=== PATIENT | female | born 1935 | race Caucasian/White ===

== ENCOUNTER 2018-01-11 09:09 | Inpatient (IN) | payer MEDICARE ==
[~2018-01-11] VITALS: Ht 152.4 cm; Wt 68.5 kg
[~2018-01-11 09:09] MED LIST: ATEN25TA PO; LEVO75TA5 PO; OMEP-110 PO
[2018-01-11] MEDS ORDERED: ALENDRONATE (09:24)
[2018-01-11] MEDS ORDERED: ASPIRIN 81 MG TABLET CHEW ONE (09:55)
[2018-01-11] MEDS ORDERED: ASPIRIN 81 MG TABLET CHEW PO ONE (10:00)
[2018-01-11 10:13] LABS: BASOPHILS # (AUTO) 0.02 x10^3/uL (0-0.1); BASOPHILS % (AUTO) 0 % (0-1); EOSINOPHILS # (AUTO) 0.11 x10^3/uL (0-0.4); EOSINOPHILS % (AUTO) 2 % (1-7); LYMPHOCYTES # (AUTO) 1.71 x10^3/uL (1-3.4); LYMPHOCYTES % (AUTO) 30 % (22-44); MD NO; MEAN CORPUSCULAR HEMOGLOBIN 28.5 pg (27.0-34.8); MEAN CORPUSCULAR VOLUME 86.4 fL (80-100); MEAN PLATELET VOLUME 9.4 fL (7.4-10.4); MONOCYTES # (AUTO) 0.49 x10^3/uL (0.2-0.8); MONOCYTES % (AUTO) 9 % (2-9); NEUTROPHILS # (AUTO) 3.44 x10^3/uL (1.8-6.8); NEUTROPHILS % (AUTO) 60 % (42-75); PLATELET COUNT 245 x10^3/uL (130-400); RED BLOOD COUNT 5.03 x10^6/uL (3.82-5.3); RED CELL DISTRIBUTION WIDTH 14.2 % (9.6-15.2)
[2018-01-11 10:24] LABS: ALANINE AMINOTRANSFERASE 21 U/L (12-78); ANION GAP 8 mmol/L (5-15); CALCIUM 8.5 mg/dL (8.5-10.1); CHLORIDE 111 mmol/L (98-107); CREATININE 0.75 mg/dL (0.55-1.02)
[2018-01-11 10:28] LABS: ALKALINE PHOSPHATASE 60 U/L (45-117); BILIRUBIN,TOTAL 0.4 mg/dL (0.2-1.0); TOTAL PROTEIN 7.5 g/dL (6.4-8.2); TROPONIN I < 0.015 ng/mL (0.000-0.045)
[2018-01-11] MEDS ORDERED: ONDANSETRON 2MG/ML, 2ML IVPush PRN (12:30)
[2018-01-11] MEDS ORDERED: ACETAMINOPHEN 325 MG TABLET PO PRN (12:30)
[2018-01-11] MEDS ORDERED: hydrALAzine 20 MG/ML, 1ML IVPush PRN (12:30)
[2018-01-11 12:55] VITALS: BP_SYST 144; BP_SYST 163; BP_SYST 168; BP_DIAS 71; BP_DIAS 79; BP_DIAS 84
[2018-01-11 13:01] LABS: FREE T4 (FREE THYROXINE) 1.41 ng/dL (0.76-1.46); TROPONIN I < 0.015 ng/mL (0.000-0.045)
[2018-01-11 13:06] LABS: THYROID STIMULATING HORMONE 0.196 mIU/L (0.358-3.740)
[2018-01-11] MEDS: HEPARIN 5,000 UNITS/ML, 1ML SQ SCH ×2 (14:01→20:43)
[2018-01-11] MEDS: SODIUM CHLORIDE 0.9% 1,000 ML IV SCH (16:39)
[2018-01-11 19:41] VITALS: BP 158/83
[2018-01-11 20:12] LABS: TROPONIN I < 0.015 ng/mL (0.000-0.045)
[2018-01-12 00:46] VITALS: BP 149/74
[2018-01-12 05:35] LABS: BASOPHILS # (AUTO) 0.02 x10^3/uL (0-0.1); BASOPHILS % (AUTO) 0 % (0-1); EOSINOPHILS # (AUTO) 0.13 x10^3/uL (0-0.4); EOSINOPHILS % (AUTO) 3 % (1-7); LYMPHOCYTES # (AUTO) 1.72 x10^3/uL (1-3.4); LYMPHOCYTES % (AUTO) 37 % (22-44); MD NO; MEAN CORPUSCULAR HEMOGLOBIN 28.4 pg (27.0-34.8); MEAN CORPUSCULAR HGB CONC 32.9 g/dL (32.4-35.8); MEAN CORPUSCULAR VOLUME 86.3 fL (80-100); MEAN PLATELET VOLUME 9.3 fL (7.4-10.4); MONOCYTES # (AUTO) 0.37 x10^3/uL (0.2-0.8); MONOCYTES % (AUTO) 8 % (2-9); NEUTROPHILS # (AUTO) 2.44 x10^3/uL (1.8-6.8); NEUTROPHILS % (AUTO) 52 % (42-75); PLATELET COUNT 208 x10^3/uL (130-400); RED BLOOD COUNT 4.61 x10^6/uL (3.82-5.3); RED CELL DISTRIBUTION WIDTH 14.2 % (9.6-15.2)
[2018-01-12] MEDS: HEPARIN 5,000 UNITS/ML, 1ML SQ SCH ×2 (05:36→14:00)
[2018-01-12 05:46] LABS: ANION GAP 6 mmol/L (5-15); CALCIUM 8.3 mg/dL (8.5-10.1); CHLORIDE 111 mmol/L (98-107)
[2018-01-12 05:47] LABS: CREATININE 0.75 mg/dL (0.55-1.02)
[2018-01-12] MEDS ORDERED: REGADENOSON 0.4 MG/5 ML SYRINGE ONE (08:16)
[2018-01-12] MEDS ORDERED: ATENOLOL 25 MG TABLET PO SCH (09:00)
[2018-01-12] MEDS ORDERED: LEVOTHYROXINE 75 MCG TABLET PO SCH (09:00)
[2018-01-12] MEDS ORDERED: OMEPRAZOLE 20 MG CAPSULE.DR PO SCH (09:00)
[2018-01-12 11:00] VITALS: BP 150/98
[2018-01-12] MEDS: SODIUM CHLORIDE 0.9% 1,000 ML IV SCH (12:30)
[2018-01-12 14:55] VITALS: BP 135/65
== END 2018-01-12 17:16 | disposition home or self-care (01) | DRG 74 ==
LOC: ED 11:07 → EDIP 11:18 → 5SO 12:44
PROVIDERS: ADMIT Internal Medicine Pulmonary Disease; ATTEND Internal Medicine Pulmonary Disease
DX: G90.8 Other disorders of autonomic nervous system (principal); I48.91 Unspecified atrial fibrillation; E03.9 Hypothyroidism, unspecified; I10 Essential (primary) hypertension; H53.8 Other visual disturbances; I25.10 Atherosclerotic heart disease of native coronary artery without angina pectoris; K21.9 Gastro-esophageal reflux disease without esophagitis; M81.0 Age-related osteoporosis without current pathological fracture; Z66 Do not resuscitate; Z79.82 Long term (current) use of aspirin; Z82.49 Family history of ischemic heart disease and other diseases of the circulatory system; Z83.3 Family history of diabetes mellitus
CPT/HCPCS: 36415; 70450; 71045; 78452; 80048; 80053; 83735; 84100; 84439; 84443; 84484; 85025; 93005; 93017; 93306; 99285; J1644; J2785; A9502; C9898; J7030

== ENCOUNTER 2018-01-30 09:33 | Day surgery (SDC) | payer MEDICARE ==
[~2018-01-30] VITALS: Ht 152.4 cm; Wt 67.7 kg
[~2018-01-30 09:33] MED LIST changes: +ALENDRONATE
[2018-01-30 10:21] VITALS: BP 136/79
[2018-01-30 10:43] LABS: BASOPHILS # (AUTO) 0.01 x10^3/uL (0-0.1); BASOPHILS % (AUTO) 0 % (0-1); EOSINOPHILS # (AUTO) 0.13 x10^3/uL (0-0.4); EOSINOPHILS % (AUTO) 3 % (1-7); LYMPHOCYTES # (AUTO) 1.35 x10^3/uL (1-3.4); LYMPHOCYTES % (AUTO) 28 % (22-44); MD NO; MEAN CORPUSCULAR HEMOGLOBIN 28.3 pg (27.0-34.8); MEAN CORPUSCULAR HGB CONC 32.8 g/dL (32.4-35.8); MEAN CORPUSCULAR VOLUME 86.2 fL (80-100); MEAN PLATELET VOLUME 9.3 fL (7.4-10.4); MONOCYTES # (AUTO) 0.42 x10^3/uL (0.2-0.8); MONOCYTES % (AUTO) 9 % (2-9); NEUTROPHILS # (AUTO) 2.99 x10^3/uL (1.8-6.8); NEUTROPHILS % (AUTO) 61 % (42-75); PLATELET COUNT 211 x10^3/uL (130-400); RED BLOOD COUNT 4.82 x10^6/uL (3.82-5.3); RED CELL DISTRIBUTION WIDTH 14.3 % (9.6-15.2)
[2018-01-30 10:54] LABS: ANION GAP 8 mmol/L (5-15); CALCIUM 8.2 mg/dL (8.5-10.1); CHLORIDE 111 mmol/L (98-107); CREATININE 0.75 mg/dL (0.55-1.02)
[2018-01-30] MEDS ORDERED: LIDOCAINE/PF 1%, 30ML ONE (11:46)
[2018-01-30] MEDS ORDERED: FENTANYL PF 100 MCG/2ML ONE (11:46)
[2018-01-30] MEDS ORDERED: MIDAZOLAM 1 MG/ML, 2ML ONE ×2 (11:46)
== END 2018-01-30 15:37 ==
LOC: CACL 09:33
PROVIDERS: ATTEND Internal Medicine Cardiovascular Disease
DX: I20.0 Unstable angina (principal); I49.8 Other specified cardiac arrhythmias; E03.9 Hypothyroidism, unspecified
CPT/HCPCS: 36415; 80048; 85025; 93458; 99156; C1760; C1769; C1894; J2250; J3010; J3490; Q9967

== ENCOUNTER → 2018-08-16 | Outpatient (CLI) | payer MEDICARE ==
[~2018-08-16] MED LIST changes: +OMNIPAQUE 350 MG/ML, 150 ML BOTTLE ONE
[2018-08-16 15:27] LABS: CREATININE 0.77 mg/dL (0.55-1.02)
== END | disposition home or self-care (01) ==
LOC: RAD 14:39
PROVIDERS: ATTEND Internal Medicine
DX: N28.1 Cyst of kidney, acquired (principal); K44.9 Diaphragmatic hernia without obstruction or gangrene; D17.79 Benign lipomatous neoplasm of other sites; K57.90 Diverticulosis of intestine, part unspecified, without perforation or abscess without bleeding
CPT/HCPCS: 36415; 74178; 82565; Q9967

== ENCOUNTER → 2018-10-10 | Outpatient (CLI) | payer MEDICARE | END | disposition home or self-care (01) | LOC: CFH 10:07 | PROVIDERS: ATTEND Physician Assistant | DX: N28.1 Cyst of kidney, acquired (principal); K44.9 Diaphragmatic hernia without obstruction or gangrene; K57.30 Diverticulosis of large intestine without perforation or abscess without bleeding; M85.88 Other specified disorders of bone density and structure, other site | CPT/HCPCS: 74178; 82565; Q9967 ==

== ENCOUNTER 2019-01-20 08:37 | Outpatient (CLI) | payer MEDICARE ==
[~2019-01-20 08:37] MED LIST changes: -OMNIPAQUE 350 MG/ML, 150 ML BOTTLE ONE
== END 2019-01-20 23:59 | disposition home or self-care (01) ==
LOC: CFH 08:37
PROVIDERS: ATTEND Licensed Practical Nurse
DX: Z13.820 Encounter for screening for osteoporosis (principal); M85.9 Disorder of bone density and structure, unspecified; N95.8 Other specified menopausal and perimenopausal disorders
CPT/HCPCS: 77080

== ENCOUNTER → 2019-01-22 | Outpatient (CLI) | payer MEDICARE | END | disposition home or self-care (01) | LOC: CFH 11:54 | PROVIDERS: ATTEND Internal Medicine | DX: N63.20 Unspecified lump in the left breast, unspecified quadrant (principal) | CPT/HCPCS: 76641; 77066; G0279 ==

== ENCOUNTER → 2019-02-12 | Outpatient (CLI) | payer MEDICARE ==
[~2019-02-12] MED LIST changes: +LEVO50TA5 PO; +LISI-170 PO
[2019-02-12 14:40] LABS: ALANINE AMINOTRANSFERASE 21 U/L (12-78); ALBUMIN 3.9 g/dL (3.4-5.0); ANION GAP 5 mmol/L (5-15); CALCIUM 8.6 mg/dL (8.5-10.1); CHLORIDE 111 mmol/L (98-107); CREATININE 0.92 mg/dL (0.55-1.02)
[2019-02-12 14:42] LABS: ALKALINE PHOSPHATASE 66 U/L (45-117); BILIRUBIN,TOTAL 0.3 mg/dL (0.2-1.0); TOTAL PROTEIN 7.1 g/dL (6.4-8.2)
== END | disposition home or self-care (01) ==
LOC: STAR 13:24
PROVIDERS: ATTEND Surgery
DX: Z01.818 Encounter for other preprocedural examination (principal); N63.22 Unspecified lump in the left breast, upper inner quadrant; R94.31 Abnormal electrocardiogram [ECG] [EKG]
CPT/HCPCS: 36415; 80053; 93005

== ENCOUNTER 2019-02-21 07:18 | Day surgery (SDC) | payer MEDICARE ==
[~2019-02-21] VITALS: Ht 152.4 cm; Wt 67.9 kg
[2019-02-21 07:46] VITALS: BP 153/81
[2019-02-21] MEDS ORDERED: LACTATED RINGERS 1,000 ML IV SCH (07:50)
[2019-02-21] MEDS ORDERED: BUPIVACAINE/EPI 0.5% 1:200K ONE (08:55)
[2019-02-21] MEDS ORDERED: FENTANYL PF 100 MCG/2ML ONE (09:13)
[2019-02-21] MEDS ORDERED: BUPIVACAINE/PF-EPI 0.5% 1:200K INFIL ONE (09:29)
[2019-02-21] MEDS ORDERED: ACETAMINOPHEN 325 MG TABLET PO PRN (09:30)
[2019-02-21] MEDS ORDERED: KETOROLAC 30 MG/1 ML IV PRN (09:30)
[2019-02-21] MEDS ORDERED: MIDAZOLAM 1 MG/ML, 2ML IV PRN (09:30)
[2019-02-21] MEDS ORDERED: MEPERIDINE/PF 25MG/0.5ML IVPush PRN (09:30)
[2019-02-21] MEDS ORDERED: PROMETHAZINE 25 MG/ML, 1ML IV PRN (09:30)
[2019-02-21] MEDS ORDERED: OXYcodone 5 MG/5 ML ORAL.SOL UDC PO PRN (09:30)
[2019-02-21] MEDS ORDERED: FENTANYL PF 100 MCG/2ML IV PRN (09:30)
[2019-02-21] MEDS ORDERED: HYDROmorphone 2 MG/ML, 1ML IVPush PRN (09:30)
[2019-02-21] MEDS ORDERED: hydrALAzine 20 MG/ML, 1ML IV PRN (09:30)
[2019-02-21] MEDS ORDERED: ONDANSETRON 2MG/ML, 2ML IV PRN (09:30)
[2019-02-21] MEDS ORDERED: ALBUTEROL/IPRATROPIUM 2.5MG/0.5MG, 3 ML NPPB PRN (09:30)
[2019-02-21] MEDS ORDERED: PROPOFOL 10 MG/ML, 20ML ONE (09:31)
[2019-02-21] MEDS ORDERED: CEFAZOLIN 1,000 MG ONE (09:31)
[2019-02-21] MEDS ORDERED: DEXAMETHASONE 4 MG/ML, 1ML ONE (09:31)
[2019-02-21] MEDS ORDERED: ONDANSETRON 2MG/ML, 2ML ONE (09:31)
== END 2019-02-21 11:50 | disposition home or self-care (01) ==
LOC: OUT 07:18
PROVIDERS: ATTEND Surgery
DX: N63.20 Unspecified lump in the left breast, unspecified quadrant (principal); E78.5 Hyperlipidemia, unspecified; I10 Essential (primary) hypertension; K21.9 Gastro-esophageal reflux disease without esophagitis; E03.9 Hypothyroidism, unspecified; Z98.890 Other specified postprocedural states; Z87.891 Personal history of nicotine dependence; Z72.89 Other problems related to lifestyle
CPT/HCPCS: 19120; 88305; J0690; J1100; J2405; J2704; J3010; J7120

== ENCOUNTER 2019-02-25 10:02 | Emergency (ER) | payer MEDICARE ==
[~2019-02-25] VITALS: Ht 152.4 cm; Wt 67.9 kg
--- NOTE | 2019-02-25 10:55 | NUR ---
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
--- NOTE | 2019-02-25 11:30 | NUR ---
LATE ENTRY FOR 11:30. FIRST CONTACT WITH PT. PT C/O "CLEAR GEL LIKE SUBSTANCE" WITH MINIMAL BM'S AND BILAT LOWER ABD QUAD CRAMPING SINCE SUNDAY. PT REPORTS "BUT I JUST NOW WENT TO THE BATHROOM AND HAD A NORMAL BOWEL MOVEMENT, SO I DON'T KNOW WHAT'S GOING ON". PT'S AOX4. RESPS EVEN AND UNLABORED. BP/SPO2 MONITORS IN PLACE. CALL LIGHT WITHIN REACH.
[2019-02-25 11:55] LABS: BASOPHILS # (AUTO) 0.02 x10^3/uL (0-0.1); BASOPHILS % (AUTO) 0 % (0-1); EOSINOPHILS # (AUTO) 0.16 x10^3/uL (0-0.4); EOSINOPHILS % (AUTO) 2 % (1-7); LYMPHOCYTES # (AUTO) 1.47 x10^3/uL (1-3.4); LYMPHOCYTES % (AUTO) 22 % (22-44); MD NO; MEAN CORPUSCULAR HEMOGLOBIN 28.5 pg (27.0-34.8); MEAN CORPUSCULAR HGB CONC 32.4 g/dL (32.4-35.8); MEAN PLATELET VOLUME 8.6 fL (7.4-10.4); MONOCYTES # (AUTO) 0.42 x10^3/uL (0.2-0.8); MONOCYTES % (AUTO) 6 % (2-9); NEUTROPHILS # (AUTO) 4.57 x10^3/uL (1.8-6.8); NEUTROPHILS % (AUTO) 69 % (42-75); PLATELET COUNT 224 x10^3/uL (130-400); RED BLOOD COUNT 4.66 x10^6/uL (3.82-5.3); RED CELL DISTRIBUTION WIDTH 14.8 % (9.6-15.2)
[2019-02-25] MEDS ORDERED: SODIUM CHLORIDE FLUSH 10ML SYR IVF ONE (12:00)
[2019-02-25 12:03] LABS: INTERNATIONAL NORMALIZED RATIO 1.05 (0.93-1.1)
--- NOTE | 2019-02-25 12:08 | NUR ---
PT AMB TO BR WITH STEADY GAIT. UA SENT.
[2019-02-25 12:12] LABS: CHLORIDE 112 mmol/L (98-107)
[2019-02-25 12:20] LABS: ALANINE AMINOTRANSFERASE 16 U/L (12-78); ALBUMIN 3.6 g/dL (3.4-5.0); ALKALINE PHOSPHATASE 62 U/L (45-117); ANION GAP 9 mmol/L (5-15); BILIRUBIN,TOTAL 0.4 mg/dL (0.2-1.0); CALCIUM 8.6 mg/dL (8.5-10.1); CREATININE 0.77 mg/dL (0.55-1.02); TOTAL PROTEIN 6.6 g/dL (6.4-8.2)
--- NOTE | 2019-02-25 12:43 | NUR ---
PT IN CT NOW.
[2019-02-25 12:54] LABS: MICROSCOPIC NOT IND
--- NOTE | 2019-02-25 12:56 | NUR ---
PT BACK TO ROOM FROM CT NOW.
[2019-02-25 13:00] LABS: CULTURE INDICATED? NO
[2019-02-25] MEDS ORDERED: OMNIPAQUE 350 MG/ML, 100ML BOTTLE ONE (13:04)
[2019-02-25 14:17] VITALS: BP 155/78
--- NOTE | 2019-02-25 14:18 | NUR ---
pt given dc instructions. pt's aox4. resps even and unlabored. pt amb to dc with steady gait. no acute distress at dc.
== END 2019-02-25 14:19 | disposition home or self-care (01) ==
LOC: ED 13:39
DX: K57.30 Diverticulosis of large intestine without perforation or abscess without bleeding (principal); K21.9 Gastro-esophageal reflux disease without esophagitis; E03.9 Hypothyroidism, unspecified; I48.91 Unspecified atrial fibrillation; I10 Essential (primary) hypertension; Z87.891 Personal history of nicotine dependence
CPT/HCPCS: 36415; 74177; 80053; 81003; 83690; 85025; 85610; 85730; 99284; Q9967

== ENCOUNTER → 2021-01-21 | Outpatient (CLI) | payer MEDICARE ==
[~2021-01-21] MED LIST changes: +REGADENOSON 0.4 MG/5 ML SYRINGE ONE
== END | disposition home or self-care (01) ==
LOC: CFH 11:52
PROVIDERS: ATTEND Internal Medicine Cardiovascular Disease
DX: I42.9 Cardiomyopathy, unspecified (principal); I25.10 Atherosclerotic heart disease of native coronary artery without angina pectoris
CPT/HCPCS: 78452; 93017; A9502; J2785